=== PATIENT | male | born 1955 | race Caucasian/White ===

== ENCOUNTER 2018-02-05 18:44 | Inpatient (IN) | payer MEDICAID ==
[~2018-02-05] VITALS: Ht 177.8 cm; Wt 106.7 kg
[~2018-02-05 18:44] MED LIST: ASPIR 8181 MG PO; CLINDAMYCI600 MG/50 IV; LAC PO; LEV500PM IV; LIPI10 PO; LISINOPRIL10 MG PO; METOPROLOL TART25 M1 PO
[2018-02-05 19:42] LABS: BASOPHIL % 0.3 % (0-2); PLATELET COUNT 312 x10^3mcL (130-400); RED CELL DISTRIBUTION WIDTH 13.7 % (11.5-14.5)
[2018-02-05 20:02] LABS: BILIRUBIN TOTAL 0.5 mg/dL (0.20-1.00); CALCIUM 8.8 mg/dL (8.5-10.1); CARBON DIOXIDE 25.2 mmol/L (21-32); CREATININE SERUM 1.6 mg/dL (0.7-1.3); MAGNESIUM 1.4 mg/dL (1.8-2.4); POTASSIUM SERUM 4.2 mmol/L (3.5-5.1); TOTAL PROTEIN, SERUM 6.4 g/dL (6.4-8.2)
[2018-02-05] MEDS ORDERED: COREG12.5 MG PO (21:52)
[2018-02-05] MEDS ORDERED: LASIX40 MG PO (21:52)
[2018-02-05] MEDS ORDERED: CLOPIDOGREL75 M1 PO (21:52)
[2018-02-05 22:31] LABS: FREE T4 1.21 ng/dL (0.76-1.46); T4(THYROXINE) 8.1 ug/dL (4.7-13.3)
[2018-02-05 22:33] VITALS: BP 100/49
[2018-02-05 22:36] LABS: T3 TOTAL 0.81 ng/mL
[2018-02-06 05:51] VITALS: BP 104/57
[2018-02-06 06:17] LABS: CARBON DIOXIDE 27.5 mmol/L (21-32); CREATININE SERUM 1.4 mg/dL (0.7-1.3); MAGNESIUM 1.7 mg/dL (1.8-2.4); POTASSIUM SERUM 3.8 mmol/L (3.5-5.1)
[2018-02-06 06:22] LABS: BASOPHIL % 0.2 % (0-2); PLATELET COUNT 289 x10^3mcL (130-400); RED CELL DISTRIBUTION WIDTH 13.5 % (11.5-14.5)
[2018-02-06 06:26] LABS: microscopic required? NO
[2018-02-06 08:33] LABS: UA SPECIFIC GRAVITY 1.015 (1.005-1.035); urine erythrocyte NEGATIVE (NEGATIVE)
[2018-02-06 09:09] VITALS: BP 129/66
[2018-02-06 13:05] VITALS: BP 129/66
== END 2018-02-06 16:40 | disposition home or self-care (01) | DRG 420 ==
LOC: ED 18:44 → MU 21:27
PROVIDERS: Emergency Medicine; Internal Medicine
DX: E11.65 Type 2 diabetes mellitus with hyperglycemia (principal); N17.0 Acute kidney failure with tubular necrosis; E44.0 Moderate protein-calorie malnutrition; D68.69 Other thrombophilia; E83.42 Hypomagnesemia; E87.1 Hypo-osmolality and hyponatremia; E78.5 Hyperlipidemia, unspecified; I10 Essential (primary) hypertension; D53.9 Nutritional anemia, unspecified; D72.829 Elevated white blood cell count, unspecified; I25.2 Old myocardial infarction; Z68.33 Body mass index [BMI] 33.0-33.9, adult; Z79.84 Long term (current) use of oral hypoglycemic drugs
CPT/HCPCS: 36600; 82962; 83880; 84439; J2765; J7030; Q0092

== ENCOUNTER 2018-02-08 07:01 | Inpatient (IN) | payer MEDICAID ==
[~2018-02-08] VITALS: Ht 177.8 cm; Wt 102.1 kg
[~2018-02-08 07:01] MED LIST changes: +CLOPIDOGREL75 M1 PO; +COREG12.5 MG PO; +LASIX40 MG PO
[2018-02-08 07:56] LABS: BASOPHIL % 0.3 % (0-2)
[2018-02-08 07:59] LABS: PLATELET COUNT 324 x10^3mcL (130-400); RED CELL DISTRIBUTION WIDTH 13.3 % (11.5-14.5)
[2018-02-08 08:27] LABS: ALBUMIN 2.9 g/dL (3.4-5.0); ALKALINE PHOSPHATASE 38 U/L (46-116); ALT/SGPT 26 U/L (16-63); AST/SGOT 11 U/L (15-37); BILIRUBIN TOTAL 0.5 mg/dL (0.20-1.00); CALCIUM 8.3 mg/dL (8.5-10.1); CARBON DIOXIDE 26.7 mmol/L (21-32); CHLORIDE SERUM 93 mmol/L (98-107); CREATININE SERUM 1.2 mg/dL (0.7-1.3); GFR1 > 60 mL/min; POTASSIUM SERUM 3.6 mmol/L (3.5-5.1); SODIUM SERUM 129 mmol/L (136-145)
[2018-02-08 08:29] LABS: GLUCOSE SERUM 467 mg/dL (74-106)
[2018-02-08 09:00] LABS: PLATELET COUNT 272 x10^3mcL (130-400); RED CELL DISTRIBUTION WIDTH 13.6 % (11.5-14.5)
[2018-02-08 09:08] LABS: microscopic required? NO
[2018-02-08] MEDS ORDERED: CARVEDILOL12.5 M1 PO (09:10)
[2018-02-08] MEDS ORDERED: Z5 PO (09:10)
[2018-02-08] MEDS ORDERED: LIPITOR80 MG PO (09:10)
[2018-02-08] MEDS ORDERED: ASPIR 8181 MG PO (09:11)
[2018-02-08] MEDS ORDERED: FUROSEMIDE40 MG PO (09:11)
[2018-02-08] MEDS ORDERED: CLOPIDOGREL75 M1 PO (09:11)
[2018-02-08] MEDS ORDERED: VITAMIN-D1000 IU PO (09:12)
[2018-02-08] MEDS ORDERED: PRINIVIL10 MG PO (09:12)
[2018-02-08 09:16] LABS: BASOPHIL % 0 % (0-2)
[2018-02-08 09:38] LABS: urine erythrocyte NEGATIVE (NEGATIVE)
[2018-02-08 10:11] LABS: CHOLESTEROL/HDL RATIO 4.2; MAGNESIUM 1.6 mg/dL (1.8-2.4); PHOSPHOROUS 2.7 mg/dL (2.5-4.9)
[2018-02-08 10:13] LABS: rbc morphology (normal/abnorm) ABNORMAL (NORMAL)
[2018-02-08 10:27] LABS: T3 TOTAL 0.95 ng/mL
[2018-02-08 10:33] LABS: FREE T4 1.33 ng/dL (0.76-1.46); FREE THYROXINE INDEX 3.4 ug/dL (1.4-4.5); T4(THYROXINE) 8.8 ug/dL (4.7-13.3)
[2018-02-08 13:36] LABS: rbc morphology (normal/abnorm) ABNORMAL (NORMAL)
[2018-02-08 14:05] VITALS: BP 133/66
[2018-02-08 16:00] VITALS: BP 107/59
[2018-02-08 18:07] VITALS: BP 133/66
[2018-02-08 20:00] VITALS: BP 111/60
[2018-02-09] VITALS (8 sets, daily range): BP systolic 107–150; BP diastolic 56–90; Ht 177.8 cm; Wt 102.1 kg
[2018-02-09 06:08] LABS: BASOPHIL % 0.4 % (0-2); PLATELET COUNT 266 x10^3mcL (130-400); RED CELL DISTRIBUTION WIDTH 13.1 % (11.5-14.5)
[2018-02-09 06:10] LABS: CALCIUM 8.1 mg/dL (8.5-10.1); CARBON DIOXIDE 30.4 mmol/L (21-32); CHLORIDE SERUM 103 mmol/L (98-107); GFR1 > 60 mL/min; GLUCOSE SERUM 217 mg/dL (74-106); MAGNESIUM 2.1 mg/dL (1.8-2.4); PHOSPHOROUS 3.2 mg/dL (2.5-4.9); POTASSIUM SERUM 3.1 mmol/L (3.5-5.1); SODIUM SERUM 139 mmol/L (136-145)
[2018-02-10 05:58] VITALS: BP 119/68
[2018-02-10 06:20] LABS: BASOPHIL % 0.3 % (0-2); PLATELET COUNT 276 x10^3mcL (130-400); RED CELL DISTRIBUTION WIDTH 13.8 % (11.5-14.5)
[2018-02-10 06:26] LABS: CALCIUM 8.1 mg/dL (8.5-10.1); CARBON DIOXIDE 27.5 mmol/L (21-32); CHLORIDE SERUM 102 mmol/L (98-107); CREATININE SERUM 1.1 mg/dL (0.7-1.3); GFR1 > 60 mL/min; GLUCOSE SERUM 260 mg/dL (74-106); MAGNESIUM 1.8 mg/dL (1.8-2.4); PHOSPHOROUS 3.3 mg/dL (2.5-4.9); POTASSIUM SERUM 3.8 mmol/L (3.5-5.1); SODIUM SERUM 137 mmol/L (136-145)
[2018-02-10 08:28] VITALS: BP 115/59
[2018-02-10 13:38] VITALS: BP 101/54
[2018-02-10 15:19] LABS: BASOPHIL % 0.1 % (0-2); PLATELET COUNT 294 x10^3mcL (130-400); RED CELL DISTRIBUTION WIDTH 13.8 % (11.5-14.5)
[2018-02-10 18:03] VITALS: BP 142/67
[2018-02-10 20:55] VITALS: BP 106/58
[2018-02-10 22:33] LABS: BASOPHIL % 0.2 % (0-2); PLATELET COUNT 308 x10^3mcL (130-400); RED CELL DISTRIBUTION WIDTH 14.4 % (11.5-14.5)
[2018-02-11 05:55] VITALS: BP 120/66
[2018-02-11 06:54] LABS: CALCIUM 8.5 mg/dL (8.5-10.1); CARBON DIOXIDE 25.4 mmol/L (21-32); CHLORIDE SERUM 105 mmol/L (98-107); GFR1 > 60 mL/min; GLUCOSE SERUM 179 mg/dL (74-106); MAGNESIUM 1.8 mg/dL (1.8-2.4); PHOSPHOROUS 3.4 mg/dL (2.5-4.9); POTASSIUM SERUM 3.4 mmol/L (3.5-5.1); SODIUM SERUM 139 mmol/L (136-145)
[2018-02-11 06:59] LABS: BASOPHIL % 0.2 % (0-2)
[2018-02-11 07:10] LABS: PLATELET COUNT 306 x10^3mcL (130-400); RED CELL DISTRIBUTION WIDTH 15.1 % (11.5-14.5)
[2018-02-11 08:20] VITALS: BP 125/74
[2018-02-11 09:03] VITALS: BP 125/74
[2018-02-11] MEDS ORDERED: BIA500 PO (16:23)
[2018-02-11] MEDS ORDERED: AMO500 PO (16:24)
[2018-02-11] MEDS ORDERED: FER300 PO (16:25)
[2018-02-11] MEDS ORDERED: PRI20 PO (16:27)
[2018-02-11 16:50] VITALS: BP 104/70
[2018-02-11 17:04] VITALS: BP 104/70
== END 2018-02-11 18:31 | disposition home or self-care (01) | DRG 241 ==
LOC: ED 07:01 → IC 09:01 → DU 09:01 → IC 13:47 → DU 02-09 13:06
PROVIDERS: Emergency Medicine; Internal Medicine; Internal Medicine Gastroenterology
PROC: 0DB68ZX Excision of Stomach, Via Natural or Artificial Opening Endoscopic, Diagnostic (ICD-10-PCS; principal; 2018-02-08 15:30)
PROC: 30233N1 Transfusion of Nonautologous Red Blood Cells into Peripheral Vein, Percutaneous Approach (ICD-10-PCS; 2018-02-08 15:30)
DX: K25.4 Chronic or unspecified gastric ulcer with hemorrhage (principal); I21.A1 Myocardial infarction type 2; J96.01 Acute respiratory failure with hypoxia; N17.0 Acute kidney failure with tubular necrosis; I50.33 Acute on chronic diastolic (congestive) heart failure; E44.0 Moderate protein-calorie malnutrition; K29.01 Acute gastritis with bleeding; E87.2 Acidosis; E11.65 Type 2 diabetes mellitus with hyperglycemia; E83.42 Hypomagnesemia; K26.7 Chronic duodenal ulcer without hemorrhage or perforation; D50.0 Iron deficiency anemia secondary to blood loss (chronic); B96.81 Helicobacter pylori [H. pylori] as the cause of diseases classified elsewhere; I10 Essential (primary) hypertension; I25.10 Atherosclerotic heart disease of native coronary artery without angina pectoris; I25.9 Chronic ischemic heart disease, unspecified; G47.33 Obstructive sleep apnea (adult) (pediatric); Z68.35 Body mass index [BMI] 35.0-35.9, adult; Z95.1 Presence of aortocoronary bypass graft; Z79.82 Long term (current) use of aspirin
CPT/HCPCS: 43235; 82962; 83880; 84439; 94150; C9113; J1200; J1610; J2060; J2250; J2310; J3010; J3475; J3490; J7030; J7050; J7620; P9016; Q0092; Q0163